=== PATIENT | female | born 1955 | race Hispanic/Latino ===

== ENCOUNTER 2017-09-09 03:21 | Emergency (ER) | payer MEDICARE ==
[2017-09-09 04:07] LABS: Hematocrit 40.3 % (30.3-42.9); Hemoglobin 13.9 gm/dl (10.1-14.3); Mean Corpuscular Hemoglobin 31 pg (28-32); Mean Corpuscular Volume 91 fl (79-97); Red Blood Count 4.44 M/mm3 (3.65-5.03)
[2017-09-09 04:08] LABS: Basophils % (Auto) 0.4 % (0.0-1.8); Eosinophils # (Auto) 0.3 K/mm3 (0.0-0.4); Eosinophils % (Auto) 3.7 % (0.0-4.3); Lymphocytes # (Auto) 3.5 K/mm3 (1.2-5.4); Lymphocytes % (Auto) 38.9 % (13.4-35.0); Mean Corpuscular HGB Conc 35 % (30-34); Platelet Count 423 K/mm3 (140-440)
[2017-09-09 04:19] LABS: Alanine Aminotransferase 11 units/L (7-56); Albumin 4.3 g/dL (3.9-5); BUN/Creatinine Ratio 19; Blood Urea Nitrogen 13 mg/dL (7-17); Calcium 9.1 mg/dL (8.4-10.2); Hemolysis Index 8; Lipase 60 units/L (13-60)
[2017-09-09 04:47] LABS: Bilirubin,Urine NEG (Negative); Blood,Urine NEG (Negative); Color,Urine Straw (Yellow); Protein,Urine <15 mg/dL mg/dL (Negative); Urobilinogen,Urine < 2.0 mg/dL (<2.0)
[2017-09-09 04:56] LABS: Amphetamine Screen,Urine PRESUMPTIVE NEGATIVE; Benzodiazepines Screen,Urine PRESUMPTIVE NEGATIVE; Cannabinoid Screen,Urine PRESUMPTIVE NEGATIVE; Cocaine Screen,Urine PRESUMPTIVE NEGATIVE; Methadone Screen,Urine PRESUMPTIVE NEGATIVE; Opiate Screen,Urine PRESUMPTIVE NEGATIVE
[2017-09-09 06:44] VITALS: BP 138/91
[2017-09-09] MEDS ORDERED: IMITREX SUB-Q ONE (06:48)
[2017-09-09] MEDS ORDERED: PROTONIX PO ONE (06:51)
--- NOTE | 2017-09-09 06:56 | Emergency Department Report ---
ED General Adult HPI - General Chief complaint: Abdominal Pain Stated complaint: HEADACHE,STOMACH,NECK,BACK,KNEE,HIP Time Seen by Provider: 09/09/17 06:12 Source: patient Mode of arrival: Ambulatory Limitations: No Limitations - History of Present Illness Initial comments: 61-year-old woman has multiple complaints, primarily is concerned about headache of duration of one day, as well as central epigastric stomach burning for several days. She has been taking Tagamet antacid for the past couple days , and burning is still present, and she is also been taking [id number] analgesics, without relief, and is requesting Imitrex. She has no focal neurologic symptoms, no fever chills or diaphoresis, and no trauma. She also has multiple joint complaints, including right shoulder discomfort with no history of recent injury, but reports that she's had repetitive motion soreness in previous occasions. She also has right hip discomfort, but no history of falling, and she can walk, although there is some discomfort with her gait. Patient declines offer of x-ray, preferring to have her stomach discomfort and headache treated. She feel the risk and wait for follow-up with an orthopedist. -: Gradual, days(s) (2-3 days) Location: head (headache, bifrontal), abdomen (epigastric) Severity scale (0 -10): 5 Quality: burning, aching Consistency: constant Improves with: none Worsens with: none Associated Symptoms: denies other symptoms Treatments Prior to Arrival: NSAID, other (Tagamet for stomach acid) - Related Data Previous Rx's Medication Instructions Recorded Last Taken Type Acetaminophen/Codeine [Tylenol 1 - 2 tab PO Q4HR PRN #15 tablet 09/09/17 Unknown Rx /Codeine # 3 tab] Omeprazole 20 mg PO DAILY #30 tablet. 09/09/17 Unknown Rx Allergies Allergy/AdvReac Type Severity Reaction Status Date / Time No Known Allergies Allergy Verified 09/09/17 03:38 ED Review of Systems ROS: Stated complaint: HEADACHE,STOMACH,NECK,BACK,KNEE,HIP Other details as noted in HPI Comment: All other systems reviewed and negative Constitutional: denies: chills, fever ENT: denies: ear pain, throat pain Respiratory: denies: cough, orthopnea Cardiovascular: denies: chest pain, palpitations Endocrine: no symptoms reported Gastrointestinal: abdominal pain, nausea. denies: vomiting, diarrhea, constipation, hematemesis, melena Musculoskeletal: as per HPI, back pain, arthralgia, other (right shoulder pain with movement, right hip pain with walking). 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 right knee. collarbone. back - Social History Smoking Status: Current Every Day Smoker Substance Use Type: Methamphetamines - Medications Home Medications: Home Medications Medication Instructions Recorded Confirmed Last Taken Type Acetaminophen/Codeine [Tylenol 1 - 2 tab PO Q4HR PRN #15 tablet 09/09/17 Unknown Rx /Codeine # 3 tab] Omeprazole 20 mg PO DAILY #30 tablet. 09/09/17 Unknown Rx ED Physical Exam - General Limitations: No Limitations General appearance: alert, in no apparent distress - Head Head exam: Present: atraumatic, normocephalic - Eye Eye exam: Present: PERRL, EOMI - ENT ENT exam: Present: normal exam - Neck Neck exam: Present: normal inspection, full ROM. Absent: tenderness - Respiratory Respiratory exam: Present: normal lung sounds bilaterally. Absent: respiratory distress, wheezes - Cardiovascular Cardiovascular Exam: Present: regular rate, normal rhythm. Absent: systolic murmur, diastolic murmur, rubs, gallop - GI/Abdominal GI/Abdominal exam: Present: soft, tenderness (epigastrium), normal bowel sounds. Absent: guarding, rebound - Extremities Exam Extremities exam: Present: full ROM (both shoulder and right hip have full range of motion, no clicking, or crepitus, no bony defect) - Back Exam Back exam: Present: normal inspection - Neurological Exam Neurological exam: Present: alert, oriented X3, CN II-XII intact. Absent: motor sensory deficit - Psychiatric Psychiatric exam: Present: normal affect, normal mood - Skin Skin exam: Present: warm, dry ED Course Vital Signs 09/09/17 09/09/17 09/09/17 03:32 03:45 03:46 Temperature 97.7 F Pulse Rate 88 Respiratory 18 16 Rate Blood Pressure 130/85 119/72 Blood Pressure [Right] O2 Sat by Pulse 97 96 96 Oximetry 09/09/17 09/09/17 09/09/17 03:50 04:00 04:15 Temperature 98.6 F Pulse Rate 72 Respiratory 16 Rate Blood Pressure 130/84 130/84 Blood Pressure 119/72 [Right] O2 Sat by Pulse 96 97 96 Oximetry 09/09/17 09/09/17 09/09/17 04:30 04:46 05:00 Temperature Pulse Rate Respiratory Rate Blood Pressure 126/83 130/84 130/84 Blood Pressure [Right] O2 Sat by Pulse 95 96 97 Oximetry 09/09/17 09/09/17 09/09/17 05:15 05:30 05:46 Temperature Pulse Rate Respiratory Rate Blood Pressure 149/104 148/91 148/91 Blood Pressure [Right] O2 Sat by Pulse 97 96 97 Oximetry 09/09/17 09/09/17 09/09/17 06:00 06:16 06:30 Temperature Pulse Rate Respiratory Rate Blood Pressure 159/103 146/89 138/91 Blood Pressure [Right] O2 Sat by Pulse 97 98 97 Oximetry ED Medical Decision Making - Lab Data Result diagrams: 09/09/17 03:47 09/09/17 03:47 - Medical Decision Making This patient has multiple complaints, but primary areas of concern today appear to be her stomach discomfort, which has not been relieved with Tagamet, as well as her headache, and she is requesting an Imitrex injection for immediate relief. She has someone who will be picking her up, and she will also be treated with short course of analgesics as well. Omeprazole will be provided for symptoms of gastritis, with continuous for a month, with bland diet afterwards. Critical Care Time: No Critical care attestation.: If time is entered above; I have spent that time in minutes in the direct care of this critically ill patient, excluding procedure time. ED Disposition Clinical Impression: Headache above the eye region, Gastritis Disposition: -01 TO HOME OR SELFCARE Is pt being admited?: No Does the pt Need Aspirin: No Condition: Stable Instructions: Abdominal Pain (ED) Additional Instructions: Rest, apply ice to the areas of the head that are sore, 15-30 minutes at a time , 3-4 times per day, and rest in a quiet darkened room. Scribe and Tylenol with Codeine for any remaining headache pain Omeprazole vision [id number] antacid medication, which he only has to take once daily, but we recommend taken it for a month to completely suppress stomach acid and to allow her stomach to heal. Recheck by your doctor in one or 2 weeks to see how you're doing, and return to the emergency department if he had any signs of significant and persistent bleeding or vomiting of blood. Prescriptions: Acetaminophen/Codeine [Tylenol /Codeine # 3 tab] 1 - 2 tab PO Q4HR PRN #15 tablet PRN Reason: Pain Omeprazole 20 mg PO DAILY #30 tablet. Referrals: PRIMARY CARE, [Primary Care Provider] - 3-5 Days Time of Disposition: 06:58
[2017-09-09] MEDS ORDERED: TORADOL IM ONE (07:04)
[2017-09-09] MEDS ORDERED: DEPO-MEDROL IM ONE (07:05)
== END 2017-09-09 07:40 | disposition home or self-care (01) ==
LOC: ED 03:21
DX: K29.70 Gastritis, unspecified, without bleeding (principal); F17.200 Nicotine dependence, unspecified, uncomplicated
CPT/HCPCS: 36415; 80053; 80307; 81001; 82550; 83690; 85025; 96372; 99283; J1040; J1885; J3030